=== PATIENT | female | born 1990 | race Caucasian/White ===

== ENCOUNTER → 2017-04-04 | Outpatient (CLI) | payer BC, OTHER | END | disposition home or self-care (01) | LOC: US 14:36 | DX: N63 Unspecified lump in breast (principal) | CPT/HCPCS: 76642-TC ==

== ENCOUNTER 2017-05-02 23:31 | Emergency (ER) | payer BC, OTHER ==
[~2017-05-02] VITALS: Ht 170.2 cm; Wt 108.9 kg
--- NOTE | 2017-05-02 23:58 | NUR ---
Pt ambulated to room with steady gait. Pt changed into gown. Pt c/o bilat hip pain. Sts pain is chronic however pain has worsened last few days. Pt also c/o increased L. Knee pain. Pt resting in position of comfort for self. Awaiting further eval.
--- NOTE | 2017-05-03 00:05 | NUR ---
Dr. Santana at bedside for MSE
[2017-05-03] MEDS ORDERED: HYDROCODONE/APAP 5-325MG TABLET PO ONE (00:30)
[2017-05-03] MEDS ORDERED: HYDROCODONE/APAP 5-325MG TABLET ONE (00:31)
[2017-05-03 00:54] LABS: *URINE HCG, QUAL NEGATIVE (NEGATIVE)
[2017-05-03] MEDS ORDERED: diphenhydrAMINE 50 MG/1 ML VIAL IM ONE (01:30)
[2017-05-03] MEDS ORDERED: HYDROMORPHONE 1 MG/1 ML DISP.SYRIN IM ONE (01:30)
--- NOTE | 2017-05-03 01:35 | NUR ---
xrays obtained. Pt c/o increased pain. MD notified. Pt medicated, will monitor for effects of medication. Pt resting in position of comfort for self
[2017-05-03] MEDS ORDERED: diphenhydrAMINE 50 MG/1 ML VIAL ONE (01:39)
[2017-05-03] MEDS ORDERED: HYDROMORPHONE 1 MG/1 ML DISP.SYRIN ONE (01:39)
--- NOTE | 2017-05-03 02:09 | NUR ---
pt sts pain improving with previous medication. Pt awaiting disposition
--- NOTE | 2017-05-03 02:28 | NUR ---
Pt sts pain improved. Pt stable for discharge per MD. Pt given ACI. Pt verbalized understanding of dc instructions. 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
[2017-05-03 02:32] VITALS: BP 133/63
== END 2017-05-03 02:32 | disposition home or self-care (01) ==
LOC: ER 23:46
DX: M46.1 Sacroiliitis, not elsewhere classified (principal); M23.92 Unspecified internal derangement of left knee; K21.9 Gastro-esophageal reflux disease without esophagitis
CPT/HCPCS: 72100; 72170; 73562; 84703; A4663; J1170; J1200

== ENCOUNTER 2017-07-01 19:21 | Emergency (ER) | payer BC, OTHER ==
[~2017-07-01] VITALS: Ht 170.2 cm; Wt 104.3 kg
--- NOTE | 2017-07-01 19:30 | NUR ---
PATIENT HAD MASSAGE 5 DAYS AGO AND NOW C/O BODYACHE WITH NAUSEA, PT IS ALERT, ORIENTED X 4, NO REPS DISTESS NOTED OR REPORTED UPON ASSESSMETN... MD AT BEDSIDE...
[2017-07-01] MEDS ORDERED: MELO-105 PO (19:38)
[2017-07-01] MEDS ORDERED: GABA-532 PO (19:38)
[2017-07-01] MEDS ORDERED: TRAMADOL HCL 50 MG TABLET PO ONE (20:00)
[2017-07-01] MEDS ORDERED: ONDANSETRON ODT 4 MG TAB.RAPDIS SL ONE (20:00)
[2017-07-01] MEDS ORDERED: ONDANSETRON ODT 4 MG TAB.RAPDIS ONE (20:16)
[2017-07-01] MEDS ORDERED: TRAMADOL HCL 50 MG TABLET ONE (20:17)
--- NOTE | 2017-07-01 21:14 | NUR ---
Patient discharged to home in stable conditon. Written and verbal after care instructions given. Patient verbalizes understanding of instructions. pt walked out of ER with cane from home with belongings at side..
[2017-07-01 21:19] VITALS: BP 127/93
== END 2017-07-01 21:23 | disposition home or self-care (01) ==
LOC: ER 19:21
DX: G89.29 Other chronic pain (principal); M25.551 Pain in right hip; M54.9 Dorsalgia, unspecified; K21.9 Gastro-esophageal reflux disease without esophagitis; M79.7 Fibromyalgia
CPT/HCPCS: 71010; A4663; Q0162

== ENCOUNTER 2017-10-07 20:27 | Emergency (ER) | payer BC, OTHER ==
[~2017-10-07] VITALS: Ht 170.2 cm; Wt 104.3 kg
[~2017-10-07 20:27] MED LIST: GABA-532 PO; MELO-105 PO
--- NOTE | 2017-10-07 22:26 | NUR ---
Dr. Santana at bedside for MSE, awaiting further orders.
[2017-10-07] MEDS: HYDROMORPHONE 1 MG/1 ML DISP.SYRIN IM ONE (22:49)
[2017-10-07] MEDS: diphenhydrAMINE 50 MG/1 ML VIAL IM ONE (22:50)
--- NOTE | 2017-10-07 22:50 | NUR ---
Pt medicated for pain, will monitor for effects of medication. Pt resting in position of comfort for self.
[2017-10-07] MEDS ORDERED: diphenhydrAMINE 50 MG/1 ML VIAL ONE (23:01)
[2017-10-07] MEDS ORDERED: HYDROMORPHONE 2 MG/1 ML DISP.SYRIN ONE (23:01)
--- NOTE | 2017-10-07 23:20 | NUR ---
Pt sts pain is improving. Sts pain in ribs is almost gone. Sts her headache has decreased from migraine down to just a headache and sts it is tolerable at this time.
--- NOTE | 2017-10-08 | NUR ---
Pt to CT via w/c
--- NOTE | 2017-10-08 00:25 | NUR ---
Pt returned from CT, resting in position of comfort for self. No complaints at this time.
--- NOTE | 2017-10-08 01:15 | NUR ---
Pt sts pain is increasing and requested for pain medication. Dr. Santana notified, awaiting further orders.
[2017-10-08] MEDS: HYDROMORPHONE 1 MG/1 ML DISP.SYRIN IM ONE (01:45)
[2017-10-08] MEDS: diphenhydrAMINE 50 MG/1 ML VIAL IM ONE (01:45)
--- NOTE | 2017-10-08 01:45 | NUR ---
Pt medicated for discomfort, will monitor for effects of medication. Pt resting in position of comfort for self. Girlfriend at bedside.
[2017-10-08] MEDS ORDERED: HYDROMORPHONE 2 MG/1 ML DISP.SYRIN ONE (01:54)
[2017-10-08] MEDS ORDERED: diphenhydrAMINE 50 MG/1 ML VIAL ONE (01:54)
--- NOTE | 2017-10-08 02:07 | NUR ---
Pt sts pain is improving with medication. Sts pain down to a 7/10. Pt stable for discharge per Dr. Santana. Pt and girlfriend given ACI. Both verbalized understanding of dc instructions. Pt wheeled out of ER via personal w/c with ride home.
[2017-10-08 02:09] VITALS: BP 108/84
== END 2017-10-08 02:09 | disposition home or self-care (01) ==
LOC: ER 20:28
DX: M54.5 Low back pain (principal); M77.9 Enthesopathy, unspecified; M79.7 Fibromyalgia
CPT/HCPCS: 36415; 70450; 72125; 72128; 72131; 84703; 96372 ×4; 99285; A4663; J1170 ×2; J1200 ×2